=== PATIENT | male | born 2000 | race Two or more races ===

== ENCOUNTER 2022-05-20 10:34 | Emergency (ER) | payer OTHER ==
[~2022-05-20] VITALS: Ht 180.3 cm; Wt 129.8 kg
[2022-05-20 11:20] VITALS: BP 141/77
== END 2022-05-20 13:00 | disposition home or self-care (01) ==
LOC: ER 10:34 → EDBD 10:34 → ER 13:00
DX: M77.8 Other enthesopathies, not elsewhere classified (principal); Z88.8 Allergy status to other drugs, medicaments and biological substances
CPT/HCPCS: 29125; 73110